=== PATIENT | male | born 1940 | race Caucasian/White ===

== ENCOUNTER 2018-04-10 06:34 | Observation (INO) | payer MEDICARE ==
[2018-04-08 11:00] VITALS: BP 144/69
[2018-04-08 11:06] LABS: BASOPHILS % (AUTO) 0.4 % (0.0-5.0); EOSINOPHILS % (AUTO) 1.2 % (0.0-8.0); LYMPHOCYTES % (AUTO) 16.4 % (21.0-51.0); MEAN CORPUSCULAR HEMOGLOBIN 31.4 pg (27.0-33.0); MEAN CORPUSCULAR HGB CONC 33.9 g/dL (32.0-36.0); MEAN CORPUSCULAR VOLUME 92.7 fL (79-99); MONOCYTES % (AUTO) 9.3 % (3.0-13.0); NEUTROPHILS % (AUTO) 72.7 % (40.0-77.0); NUCLEATED RED BLOOD CELLS 0.2 % (0.0-0.19); PLATELET COUNT (AUTO) 146 K/uL (130-400); RED BLOOD CELL COUNT(AUTO) 4.32 MIL/uL (4.50-6.20); RED CELL DISTRIBUTION WIDTH 12.7 % (11.0-15.5); WHITE BLOOD COUNT (AUTO) 5.1 K/uL (4.8-10.8)
[2018-04-08 11:13] LABS: CREATININE 0.8 mg/dL (0.5-1.5); POTASSIUM 4.1 mmol/L (3.5-5.1)
[2018-04-08 11:35] LABS: INR 1.07 (0.85-1.15); PARTIAL THROMBOPLASTIN TIME 28.7 SEC (26.3-35.5); PROTHROMBIN TIME 11.2 SEC (9.6-11.6)
[2018-04-10] VITALS (11 sets, daily range): BP systolic 95–155; BP diastolic 50–89
[~2018-04-10] VITALS: Ht 167.6 cm; Wt 89.5 kg
[2018-04-10] MEDS: CEFAZOLIN SODIUM 1 GM VIAL IVP SCH (05:00)
[~2018-04-10 06:34] MED LIST: ALBU90AE IH; ALLO300T2 PO; AMLO-127 PO; BUDE10.2 IH; FINA5TAB41 PO; IPRA3S NASAL; LOSA100T20 PO; MV-M1TAB20 PO; POTA-79 PO; PREVACID PO; SILD100T PO; TAMS0.4C32 PO; TIOT18CA3 IH; TRAZ150T79 PO; VIT1TABL83 PO; ZYRTD PO
[2018-04-10] MEDS ORDERED: SODIUM CHLORIDE 0.9% 1000ML 1,000 ML IV ONE (07:29)
[2018-04-10] MEDS ORDERED: BUPIVACAINE/PF 0.25% 50ML VIAL IJ ONE (10:42)
[2018-04-10] MEDS ORDERED: MEPERIDINE-PF 50 MG/ML SYG ONE (10:43)
[2018-04-10] MEDS ORDERED: MIDAZOLAM HCL 1 MG/ML 2ML VIAL ONE ×2 (10:43→11:00)
[2018-04-10] MEDS ORDERED: LIDOCAINE HCL 1% MDV 50ML VIAL ONE (10:43)
[2018-04-10] MEDS ORDERED: MEPERIDINE-PF 25 MG/ML SYG ONE (11:00)
[2018-04-10] MEDS ORDERED: IOHEXOL-350 50ML VIAL IV ONE (11:16)
[2018-04-10] MEDS ORDERED: ACETAMINOPHEN 325 MG TAB PO PRN (12:00)
[2018-04-10] MEDS ORDERED: SUB PER P&T FOR ASTHMA OR COPD RECOMMENDATION IH PRN (12:00)
[2018-04-10] MEDS ORDERED: ACETAMINOPHEN-CODEINE 300/30MG TAB PO PRN ×2 (12:00)
[2018-04-10] MEDS ORDERED: TRAZODONE HCL 50 MG TAB PO SCH (21:00)
[2018-04-11 04:00] VITALS: BP 140/94
[2018-04-11] MEDS: CEFAZOLIN SODIUM 1 GM VIAL IVP SCH (04:53)
[2018-04-11 07:27] VITALS: BP 135/86
[2018-04-11] MEDS ORDERED: FINASTERIDE 5 MG TABLET PO SCH (09:00)
[2018-04-11] MEDS ORDERED: ALLOPURINOL 300 MG TABLET PO SCH (09:00)
[2018-04-11] MEDS ORDERED: PSEUDOEPHEDRINE PO SCH (09:00)
[2018-04-11] MEDS ORDERED: CETIRIZINE HCL PO SCH (09:00)
[2018-04-11] MEDS ORDERED: TAMSULOSIN HCL 0.4 MG CAP.ER.24H PO SCH (09:00)
[2018-04-11] MEDS ORDERED: ALBUTEROL SULFATE 0.083% 2.5 MG/3 ML INH IH SCH (09:00)
[2018-04-11] MEDS ORDERED: AMLODIPINE BESYLATE 5 MG TAB PO SCH (09:00)
[2018-04-11] MEDS ORDERED: LOSARTAN 100 MG TABLET PO SCH (09:00)
[2018-04-11] MEDS ORDERED: POTASSIUM CHLORIDE 20 MEQ ERTAB PO SCH (09:00)
[2018-04-11] MEDS ORDERED: BENAZEPRIL HCL 10 MG TABLET PO SCH (09:00)
[2018-04-11] MEDS ORDERED: CEPH250 PO (09:32)
== END 2018-04-11 11:34 | disposition home or self-care (01) ==
LOC: DAH 06:34 → DAHIP 06:35 → INTOOBSV 06:35 → DAH 06:35 → 2AH 15:08
PROVIDERS: ADMIT Internal Medicine Critical Care Medicine; ATTEND Internal Medicine Critical Care Medicine
DX: I49.5 Sick sinus syndrome (principal); I44.1 Atrioventricular block, second degree; Z79.899 Other long term (current) drug therapy; Z79.01 Long term (current) use of anticoagulants
CPT/HCPCS: 33208; 36415; 71045; 80048; 82947; 85025; 85610; 85730; 94664; A4606; C1785; C1898 ×2; G0378 ×29; J2175 ×2; J2250 ×2; J3490 ×2; J7030; Q9967; 99156; 99157

== ENCOUNTER → 2018-05-28 | Outpatient (CLI) | payer MEDICARE ==
[~2018-05-28] MED LIST changes: +CEPH250 PO; -LOSA100T20 PO; +LOSA100T58 PO; +REGADENOSON 0.4 MG/5 ML PF SYG IVP SCH
== END | disposition home or self-care (01) ==
LOC: SHCH 09:12
PROVIDERS: ATTEND Internal Medicine Cardiovascular Disease
DX: I25.10 Atherosclerotic heart disease of native coronary artery without angina pectoris (principal); R06.02 Shortness of breath
CPT/HCPCS: 78452; 93017; 96374; A9500 ×2; J2785

== ENCOUNTER → 2018-06-29 | Outpatient (CLI) | payer MEDICARE ==
[~2018-06-29] MED LIST changes: +AEC81 PO; +AMLO5TAB9 PO; +ATOR20TA65 PO; +BENA40TA9 PO; +CALC-1038 PO; +CHOL100040 PO; +LANS15CA12 PO; -REGADENOSON 0.4 MG/5 ML PF SYG IVP SCH; +VITA1CAP85 PO
[2018-06-29 14:20] LABS: BASOPHILS % (AUTO) 0.3 % (0.0-5.0); EOSINOPHILS % (AUTO) 1.1 % (0.0-8.0); HEMATOCRIT 38.7 % (42-54); LYMPHOCYTES % (AUTO) 16.1 % (21.0-51.0); MEAN CORPUSCULAR HEMOGLOBIN 32.6 pg (27.0-33.0); MEAN CORPUSCULAR HGB CONC 34.4 g/dL (32.0-36.0); MEAN CORPUSCULAR VOLUME 94.7 fL (79-99); MONOCYTES % (AUTO) 7.3 % (3.0-13.0); NEUTROPHILS % (AUTO) 75.2 % (40.0-77.0); PLATELET COUNT (AUTO) 201 K/uL (130-400); RED BLOOD CELL COUNT(AUTO) 4.09 MIL/uL (4.50-6.20); RED CELL DISTRIBUTION WIDTH 12.7 % (11.0-15.5); WHITE BLOOD COUNT (AUTO) 5.6 K/uL (4.8-10.8)
[2018-06-29 14:21] LABS: BILIRUBIN,URINE Negative (NEGATIVE); COLOR,URINE Yellow (YELLOW); GLUCOSE, URINE (UA) Negative (NEGATIVE); KETONES,URINE Negative (NEGATIVE); LEUKOCYTE ESTERASE ,URINE Negative (NEGATIVE); NITRATE,URINE Negative (NEGATIVE); OCCULT BLOOD,URINE Negative (NEGATIVE); PROTEIN,URINE Negative (NEGATIVE); UROBILINOGEN,URINE 0.2 mg/dL (0.2-1.0)
[2018-06-29 14:24] LABS: APPEARANCE,URINE CLEAR (CLEAR)
[2018-06-29 14:27] LABS: CREATININE 0.8 mg/dL (0.5-1.5); POTASSIUM 4.5 mmol/L (3.5-5.1)
[2018-06-29 14:31] LABS: INR 1.08 (0.85-1.15); PARTIAL THROMBOPLASTIN TIME 30.1 SEC (26.3-35.5); PROTHROMBIN TIME 11.3 SEC (9.6-11.6)
== END | disposition home or self-care (01) ==
LOC: SHCH 15:13
PROVIDERS: ATTEND Internal Medicine Cardiovascular Disease
DX: Z01.818 Encounter for other preprocedural examination (principal); R94.31 Abnormal electrocardiogram [ECG] [EKG]; K44.9 Diaphragmatic hernia without obstruction or gangrene; I70.0 Atherosclerosis of aorta; I73.9 Peripheral vascular disease, unspecified; Z79.899 Other long term (current) drug therapy; Z72.89 Other problems related to lifestyle
CPT/HCPCS: 36415; 71045; 80048; 81003; 85025; 85610; 85730; 93005; 93925

== ENCOUNTER 2018-07-01 07:48 | Day surgery (SDC) | payer MEDICARE ==
[2018-06-29 13:45] VITALS: BP 118/68
[2018-07-01] VITALS (10 sets, daily range): BP systolic 126–148; BP diastolic 73–88
[~2018-07-01] VITALS: Ht 165.1 cm; Wt 92.2 kg
[~2018-07-01 07:48] MED LIST changes: -AMLO-127 PO; -CEPH250 PO; -MV-M1TAB20 PO; -PREVACID PO; -VIT1TABL83 PO
[2018-07-01] MEDS ORDERED: SODIUM CHLORIDE 0.9% 1000ML 1,000 ML IV SCH (08:00)
--- NOTE | 2018-07-01 09:08 | NUR ---
PROCEDURE PT HERE FOR PROCEDURE. DENIES ANY DISCOMFORT AT THIS TIME. AT BEDSIDE.
[2018-07-01] MEDS ORDERED: BIVALIRUDIN 250 MG/VIAL IV ONE (12:33)
[2018-07-01] MEDS ORDERED: IOHEXOL-350 50ML VIAL IV ONE (12:33)
[2018-07-01] MEDS ORDERED: IOHEXOL 350 MG/ML 100ML INFUS..BTL IV ONE (12:33)
[2018-07-01] MEDS ORDERED: NITROGLYCERIN 5 MG/ML 10 ML VIAL IV ONE (12:33)
[2018-07-01] MEDS ORDERED: LIDOCAINE HCL 2% 20ML ONE (12:34)
--- NOTE | 2018-07-01 12:47 | NUR ---
PROCEDURE PT TAKEN TO PROCEDURE VIA BED BY [facility] [employer] HELPER PERSONNEL DEREJE JENNINGS.
--- NOTE | 2018-07-01 16:45 | NUR ---
PT TAKEN TO ROOM 222 REPORT TO JADA REYEZ.
--- NOTE | 2018-07-01 20:00 | NUR ---
PATIENT LYING FLAT IN BED. RIGHT GROIN IS SOFT, NO SIGNS OF BRUISING, BLEEDING, OR HEMATOMA NOTED. HEAD OF BED RAISED TO 30 DEGREES
--- NOTE | 2018-07-01 20:20 | NUR ---
PATIENT IS UP OUT OF BED AND AMBULATING ABOUT ROOM. NO COMPLAINTS OF DIZZINESS. PATIENTS IV DISCONTINUED. HEMOSTASIS ACHIEVED. TELEPACK REMOVED
--- NOTE | 2018-07-01 20:38 | NUR ---
PATIENT IS BEING ESCORTED OUT THROUGH ER VIA WHEELCHAIR BY [facility]DONE[facility] CNA AND FAMILY MEMBERS.
== END 2018-07-01 21:00 | disposition home or self-care (01) ==
LOC: DAH 07:48 → 2DH 17:20 → DAH 21:00
PROVIDERS: ATTEND Internal Medicine Cardiovascular Disease
DX: I25.10 Atherosclerotic heart disease of native coronary artery without angina pectoris (principal); Z79.899 Other long term (current) drug therapy; Z95.0 Presence of cardiac pacemaker; Z83.3 Family history of diabetes mellitus; J44.9 Chronic obstructive pulmonary disease, unspecified; N40.0 Benign prostatic hyperplasia without lower urinary tract symptoms; I49.5 Sick sinus syndrome; I44.1 Atrioventricular block, second degree; Z68.31 Body mass index [BMI] 31.0-31.9, adult; I73.9 Peripheral vascular disease, unspecified; I11.0 Hypertensive heart disease with heart failure; I50.30 Unspecified diastolic (congestive) heart failure
CPT/HCPCS: 93458; A4606; C1760; C1894; G0378; J0583; J1644; J3490; J7030; Q9967